=== PATIENT | female | born 2000 | race Caucasian/White ===

== ENCOUNTER 2021-08-29 03:18 | Emergency (ER) | payer OTHER ==
[~2021-08-29] VITALS: Ht 160 cm; Wt 59.1 kg
[2021-08-29 03:26] VITALS: TEMP 98
[2021-08-29 04:51] VITALS: BP 122/70; PULSE 64
== END 2021-08-29 04:51 | disposition home or self-care (01) ==
LOC: COL.ER 03:18
DX: R21 Rash and other nonspecific skin eruption (principal); T49.0X5A Adverse effect of local antifungal, anti-infective and anti-inflammatory drugs, initial encounter
CPT/HCPCS: J1200; J2930; J7030